=== PATIENT | female | born 1955 | race Caucasian/White ===

== ENCOUNTER 2017-09-06 11:16 | Emergency (ER) | payer OTHER ==
[~2017-09-06] VITALS: Ht 165.1 cm; Wt 64.5 kg
[~2017-09-06 11:16] MED LIST: NITROFURANTOIN100 M3 PO; TRAMADOL HCL50 MG PO; VICODIN 5-3001 EACH PO
[2017-09-06] MEDS ORDERED: KEFLEX500 MG PO (12:10)
[2017-09-06] MEDS ORDERED: BACTRIM,SEPT1 TABLET PO (12:10)
[2017-09-06 12:30] VITALS: BP 134/89
== END 2017-09-06 12:30 | disposition home or self-care (01) ==
LOC: EME 11:16
PROC: 0H94XZZ Drainage of Neck Skin, External Approach (ICD-10-PCS; principal; 2017-09-06)
DX: L02.11 Cutaneous abscess of neck (principal); Z88.0 Allergy status to penicillin; Z88.5 Allergy status to narcotic agent
CPT/HCPCS: 99281; 99283

== ENCOUNTER 2017-09-09 08:12 | Emergency (ER) | payer OTHER ==
[~2017-09-09] VITALS: Ht 165.1 cm; Wt 65.2 kg
[~2017-09-09 08:12] MED LIST changes: +BACTRIM,SEPT1 TABLET PO; +KEFLEX500 MG PO
[2017-09-09 08:15] VITALS: BP 177/91
== END 2017-09-09 10:33 | disposition left against medical advice (07) ==
LOC: EME 08:12
DX: Z53.21 Procedure and treatment not carried out due to patient leaving prior to being seen by health care provider (principal)